=== PATIENT | male | born 1970 | race Caucasian/White ===

== ENCOUNTER 2018-11-11 15:04 | Emergency (ER) | payer SELFPAY ==
[~2018-11-11] VITALS: Ht 180.3 cm; Wt 139.7 kg
[2018-11-11 15:28] VITALS: Ht 180.3 cm; Wt 139.7 kg
[2018-11-11 16:39] VITALS: BP 144/67
== END 2018-11-11 16:39 | disposition home or self-care (01) ==
LOC: ED 15:04
DX: S01.112A Laceration without foreign body of left eyelid and periocular area, initial encounter (principal); S00.81XA Abrasion of other part of head, initial encounter; W01.0XXA Fall on same level from slipping, tripping and stumbling without subsequent striking against object, initial encounter; Y92.9 Unspecified place or not applicable

== ENCOUNTER → 2019-10-11 | Day surgery (SDC) | payer OTHER ==
[~2019-10-11] VITALS: Ht 182.9 cm; Wt 131.5 kg
[2019-10-11 08:27] VITALS: BP 141/71
[2019-10-11 17:30] VITALS: BP 133/85
== END | disposition home or self-care (01) ==
LOC: DS 07:45 → OR 09:00 → DS 09:30 → OR 10:30 → DS 10:30 → OR 11:30
DX: K42.9 Umbilical hernia without obstruction or gangrene (principal)
CPT/HCPCS: C1781; J0330; J0690; J2250; J2405; J2704; J2710; J3010; J3490; J7120